=== PATIENT | female | born 1995 | race Caucasian/White ===

== ENCOUNTER 2017-12-28 22:37 | Emergency (ER) | payer SELFPAY ==
[~2017-12-28] VITALS: Ht 162.6 cm; Wt 65.8 kg
[2017-12-28 22:45] VITALS: BP 123/70
--- NOTE | 2017-12-28 23:55 | NUR ---
pt to er bed 3
--- NOTE | 2017-12-29 00:22 | NUR ---
PT PRESESNT TO ED WITH C/O UTI SYMPTOMS. PT STATES BLOOD IN URINE, PAIN URINATION AND FREQUENCY X 4 DAYS. ALSO REPORTS LT LOWER ABD PAIN AND N/V. DENIES FEVER/CHILLS. HX ASTHMA. AAO X4, GCS 15, RESPIRATIONS EVEN AND UNLABORED. SKIN WARM/PINK/DRY. ABDOMEN SOFT, NON DISTENDED, ACTIVE BOWEL SOUND X4. VSS, ER MD MADE AWARE OF PT STATUS.
[2017-12-29] MEDS ORDERED: PHENAZOPYRIDINE 100 MG TAB PO ONE (01:10)
[2017-12-29] MEDS ORDERED: KETOROLAC 30 MG/ML VIAL IM ONE (01:10)
--- NOTE | 2017-12-29 01:30 | NUR ---
Patient discharged with v/s stable. Written and verbal after care instructions given and explained. Patient alert, oriented and verbalized understanding of instructions. Ambulatory with steady gait. All questions addressed prior to discharge. ID band removed. Patient advised to follow up with PMD. Rx of PYRIDIUM 100 MG, CIPRO 500 MG, TYLENOL 500 MG given. Patient educated on indication of medication including possible reaction and side effects. Opportunity to ask questions provided and answered.
[2017-12-29 01:38] VITALS: BP 123/50
== END 2017-12-29 01:30 | disposition home or self-care (01) ==
LOC: MED 22:37
DX: N39.0 Urinary tract infection, site not specified (principal)
CPT/HCPCS: 81002; 81025; 96372; 99283; J1885

== ENCOUNTER 2020-12-27 21:52 | Emergency (ER) | payer MEDICAID ==
[~2020-12-27] VITALS: Ht 160 cm; Wt 90.7 kg
[2020-12-27 22:00] VITALS: BP 114/70
--- NOTE | 2020-12-27 22:00 | NUR ---
TO [facility]
--- NOTE | 2020-12-27 22:25 | NUR ---
SEEN AND EXAMINED BY BRIEN
--- NOTE | 2020-12-27 23:05 | NUR ---
SWAB FOR NOVEL SENT TO LAB
[2020-12-27] MEDS ORDERED: ALBU-118 INH (23:21)
[2020-12-28 00:01] VITALS: BP 119/79
--- NOTE | 2020-12-28 00:01 | NUR ---
Patient discharged with v/s stable. Written and verbal after care instructions given and explained. Patient alert, oriented and verbalized understanding of instructions. Ambulatory with steady gait. All questions addressed prior to discharge. ID band removed. Patient advised to follow up with PMD. Rx of ALBUTEROL SULFATE given. Patient educated on indication of medication including possible reaction and side effects. Opportunity to ask questions provided and answered.
== END 2020-12-28 00:01 | disposition home or self-care (01) ==
LOC: MED 21:52
DX: R05 Cough (principal); R06.02 Shortness of breath; M79.10 Myalgia, unspecified site; Z20.822 Contact with and (suspected) exposure to COVID-19
CPT/HCPCS: 99283; U0003

== ENCOUNTER 2021-01-16 12:08 | Emergency (ER) | payer MEDICAID ==
[~2021-01-16] VITALS: Ht 160 cm; Wt 89.9 kg
[~2021-01-16 12:08] MED LIST: ALBU-118 INH
[2021-01-16 12:26] VITALS: BP 117/42
--- NOTE | 2021-01-16 12:39 | NUR ---
25 Y/O FEMALE C/O COUGH, CONGESTION X 4 DAYS AND C/O LEFT EAR PAIN X TODAY. PT STATES SHARP 10/10 PAIN. TENDER UPON PALPATION. DENIES ANY RECENT FEVER, NAUSEA, VOMITING, DIARRHEA OR CONSTIPATION. REPORTS PT'S SON IS SICK AT HOME. PMH: ASTHMA NKA
--- NOTE | 2021-01-16 13:14 | NUR ---
DR CARDOSO AT BEDSIDE EXAMINING PT
[2021-01-16] MEDS ORDERED: KETOROLAC 60 MG/2 ML VIAL IM ONE (13:20)
[2021-01-16] MEDS ORDERED: PRED20TA5 PO (13:25)
[2021-01-16] MEDS ORDERED: IBUP-2213 PO (13:25)
[2021-01-16 13:40] VITALS: BP 117/42
--- NOTE | 2021-01-16 13:40 | NUR ---
Patient discharged with v/s stable. Written and verbal after care instructions given and explained. Patient alert, oriented and verbalized understanding of instructions. Ambulatory with steady gait. All questions addressed prior to discharge. ID band removed. Patient advised to follow up with PMD. Rx of IBUPROFEN AND PREDNISONE given. Patient educated on indication of medication including possible reaction and side effects. Opportunity to ask questions provided and answered.
[2021-01-16] MEDS ORDERED: PRON INH (13:41)
== END 2021-01-16 13:40 | disposition home or self-care (01) ==
LOC: MED 12:08
DX: H66.92 Otitis media, unspecified, left ear (principal); R05 Cough; J45.909 Unspecified asthma, uncomplicated; Z79.899 Other long term (current) drug therapy
CPT/HCPCS: 96372; 99283; J1885

== ENCOUNTER 2021-08-20 11:01 | Emergency (ER) | payer MEDICAID ==
[~2021-08-20] VITALS: Ht 157.5 cm; Wt 88.5 kg
[~2021-08-20 11:01] MED LIST changes: +IBUP-2213 PO; +PRED20TA5 PO; +PRON INH
[2021-08-20 11:09] VITALS: BP 134/76
--- NOTE | 2021-08-20 11:38 | NUR ---
PT C/O LOWER PELVIC CRAMPING, STATES WAS SEEN BY OB TO HAVE IUD REMOVED, OB WAS UNABLE TO LOCATE IUD FOR REMOVAL. PT STATES PENDING ORDERS FOR US.
[2021-08-20] MEDS ORDERED: LACT-103 PO (12:32)
[2021-08-20] MEDS ORDERED: GLYPS RC (12:32)
--- NOTE | 2021-08-20 14:08 | NUR ---
Patient discharged with v/s stable. Written and verbal after care instructions given and explained. Patient verbalized understanding. Ambulatory with steady gait. All questions addressed prior to discharge. Advised to follow up with PMD.
== END 2021-08-20 14:08 | disposition home or self-care (01) ==
LOC: MED 11:01
DX: K59.00 Constipation, unspecified (principal); J45.909 Unspecified asthma, uncomplicated; Z79.899 Other long term (current) drug therapy; Z79.1 Long term (current) use of non-steroidal anti-inflammatories (NSAID)
CPT/HCPCS: 76830; 81002; 81025; 93976; 99284; Q0092

== ENCOUNTER 2022-01-11 14:12 | Emergency (ER) | payer MEDICAID ==
[~2022-01-11] VITALS: Ht 157.5 cm; Wt 71.7 kg
[~2022-01-11 14:12] MED LIST changes: +GLYPS RC
[2022-01-11 14:23] VITALS: BP 121/72
--- NOTE | 2022-01-11 14:29 | NUR ---
Patient ambulated to restroom with steady gait.
--- NOTE | 2022-01-11 15:09 | NUR ---
26/F PRESENTS TO ED WITH C/O HEADACHE RUNNY NOSE, COUGH AND BILATERAL EAR PAIN X4 DAYS. PATIENT REPORTS SON RECENTLY SICK AT HOME WITH SAME SYMPTOMS, DENIES FEVERS, CHILLS, SOB, CP.
[2022-01-11] MEDS ORDERED: AMOX1TAB8 PO (15:41)
[2022-01-11] MEDS ORDERED: NAPR-54 PO (15:41)
[2022-01-11 15:48] VITALS: BP 108/71
--- NOTE | 2022-01-11 15:48 | NUR ---
Patient discharged with v/s stable. Written and verbal after care instructions given. Patient alert, oriented and verbalized understanding of instructions. Ambulatory with steady gait. All questions addressed prior to discharge. ID band removed. Patient advised to follow up with PMD. Rx of given. Opportunity to ask questions provided and answered. Discharge instructions given to patient by Dr. Machado.
[2022-01-11] MEDS ORDERED: PRON INH (15:52)
[2022-01-11] MEDS ORDERED: ALBU0.0912 IH (15:52)
--- NOTE | 2022-01-11 16:10 | NUR ---
The patient's care was reviewed and supervised by ED Agency Nurse 9, RN, RN.
== END 2022-01-11 15:49 | disposition home or self-care (01) ==
LOC: MED 14:12
DX: J06.9 Acute upper respiratory infection, unspecified (principal); H66.93 Otitis media, unspecified, bilateral; J45.909 Unspecified asthma, uncomplicated; F12.90 Cannabis use, unspecified, uncomplicated
CPT/HCPCS: 81002; 81025; 99283

== ENCOUNTER 2022-02-01 10:52 | Emergency (ER) | payer MEDICAID ==
[~2022-02-01] VITALS: Ht 157.5 cm; Wt 84.8 kg
[~2022-02-01 10:52] MED LIST changes: +ALBU0.0912 IH; +AMOX1TAB8 PO; +NAPR-54 PO
[2022-02-01 10:57] VITALS: BP 133/72
--- NOTE | 2022-02-01 12:11 | NUR ---
1CALL ER LOBBY N/A [phone] 2ND CALL ER LOBBY N/A [phone] 3DR CALL ER LOBBY N/A PATIENT LEFT WITHOUT BEING SEEN BY DR. LEGER. NO FURTHER CARE PROVIDED FOR PATIENT.
== END 2022-02-01 13:05 | disposition left against medical advice (07) ==
LOC: MED 10:52
DX: H92.02 Otalgia, left ear (principal); Z53.21 Procedure and treatment not carried out due to patient leaving prior to being seen by health care provider

== ENCOUNTER 2022-05-26 05:40 | Emergency (ER) | payer MEDICAID ==
[~2022-05-26] VITALS: Ht 160 cm; Wt 93.0 kg
[2022-05-26 05:54] VITALS: BP 114/87
--- NOTE | 2022-05-26 06:04 | NUR ---
PT TAKEN TO BED 8
--- NOTE | 2022-05-26 06:08 | NUR ---
Patient resting in bed, A/Ox4, chest rise and fall symmetrical, no s/s of distress, patient on monitor.
--- NOTE | 2022-05-26 06:16 | NUR ---
Dr. Carvalho examining patient.
[2022-05-26] MEDS ORDERED: LIDOCAINE 1% 500 MG/ 50 ML VIAL INJ ONE (06:20)
--- NOTE | 2022-05-26 06:25 | NUR ---
Patient being evaluated by physician at bedside.
[2022-05-26] MEDS ORDERED: LIDOCAINE MPF 1% 5 ML ONE (06:27)
[2022-05-26] MEDS ORDERED: NAPR-1704 PO (06:34)
--- NOTE | 2022-05-26 06:38 | NUR ---
Patient resting in bed, A/Ox4, chest rise and fall symmetrical, no c/o pain or s/s of distress, patient on monitor.
[2022-05-26 06:41] VITALS: BP 98/41
== END 2022-05-26 06:41 | disposition home or self-care (01) ==
LOC: MED 05:40
DX: M54.2 Cervicalgia (principal); M62.830 Muscle spasm of back; J45.909 Unspecified asthma, uncomplicated; F12.90 Cannabis use, unspecified, uncomplicated; Z79.899 Other long term (current) drug therapy
CPT/HCPCS: 20553; 99284; J2001; 20552

== ENCOUNTER 2023-02-02 20:41 | Emergency (ER) | payer MEDICAID ==
[~2023-02-02] VITALS: Ht 157.5 cm; Wt 95.7 kg
[~2023-02-02 20:41] MED LIST changes: +NAPR-1704 PO
[2023-02-02 21:08] VITALS: BP 103/67; PULSE 88; RESP 16; TEMP 97.5; O2SAT 99
[2023-02-02] MEDS ORDERED: HYDROcodone/APAP 5/325 MG 1 TAB TAB PO ONE (23:15)
[2023-02-02] MEDS ORDERED: KETOROLAC 30 MG/ML VIAL IM ONE (23:15)
[2023-02-02] MEDS ORDERED: NAPR-54 PO (23:25)
[2023-02-03 00:30] VITALS: BP 118/78; PULSE 81; RESP 16; TEMP 98; O2SAT 99
== END 2023-02-03 00:30 | disposition home or self-care (01) ==
LOC: MED 20:41
DX: S93.402A Sprain of unspecified ligament of left ankle, initial encounter (principal); J45.909 Unspecified asthma, uncomplicated; Z79.899 Other long term (current) drug therapy; W22.8XXA Striking against or struck by other objects, initial encounter; Y93.89 Activity, other specified; Y92.89 Other specified places as the place of occurrence of the external cause; Y99.8 Other external cause status
CPT/HCPCS: 29515; 73610; 96372; 99283; J1885

== ENCOUNTER 2023-04-03 00:59 | Emergency (ER) | payer MEDICAID ==
[~2023-04-03] VITALS: Ht 157.5 cm; Wt 97.5 kg
[2023-04-03 01:07] VITALS: BP 129/70; PULSE 81; RESP 18; TEMP 97.5; O2SAT 99
[2023-04-03] MEDS ORDERED: KETOROLAC 60 MG/2 ML VIAL IM ONE (01:15)
[2023-04-03] MEDS ORDERED: IBUP-2213 PO (01:27)
== END 2023-04-03 01:36 | disposition home or self-care (01) ==
LOC: MED 00:59
DX: S13.4XXA Sprain of ligaments of cervical spine, initial encounter (principal); J45.909 Unspecified asthma, uncomplicated; Z79.899 Other long term (current) drug therapy; X58.XXXA Exposure to other specified factors, initial encounter; Y93.89 Activity, other specified; Y92.89 Other specified places as the place of occurrence of the external cause; Y99.8 Other external cause status
CPT/HCPCS: 96372; 99283; J1885

== ENCOUNTER 2023-05-16 15:22 | Emergency (ER) | payer MEDICAID ==
[~2023-05-16] VITALS: Ht 157.5 cm; Wt 98.4 kg
[2023-05-16 16:05] VITALS: BP 102/74; PULSE 81; RESP 18; TEMP 97.9; O2SAT 99
[2023-05-16] MEDS ORDERED: IBUPROFEN 600 MG TAB PO ONE (16:15)
[2023-05-16] MEDS ORDERED: IBUP-2213 PO (17:37)
== END 2023-05-16 17:54 | disposition home or self-care (01) ==
LOC: MED 15:22
DX: S60.222A Contusion of left hand, initial encounter (principal); J45.909 Unspecified asthma, uncomplicated; Z79.899 Other long term (current) drug therapy; Z79.1 Long term (current) use of non-steroidal anti-inflammatories (NSAID); Z79.2 Long term (current) use of antibiotics; W22.8XXA Striking against or struck by other objects, initial encounter; Y92.89 Other specified places as the place of occurrence of the external cause; Y93.89 Activity, other specified; Y99.8 Other external cause status
CPT/HCPCS: 73130; 99283